=== PATIENT | female | born 1965 | race Caucasian/White ===

== ENCOUNTER 2016-12-05 20:16 | Emergency (ER) | payer MEDICARE, OTHER ==
[2016-12-05 20:48] VITALS: BP 114/90; PULSE 68; RESP 18; TEMP 98.6
--- NOTE | 2016-12-05 22:14 | XR ---
EXAMINATION TYPE: XR tibia fibula LT DATE OF EXAM: 12/05/2016 10:05 PM COMPARISON: NONE HISTORY: Pain after injury TECHNIQUE: 2 views FINDINGS: I see no fracture nor dislocation. Joint spaces are normal. Knee joint and ankle joint appe ar intact. IMPRESSION: Negative left tibia and fibula exam.
--- NOTE | 2016-12-05 22:30 | ED ---
Lower Extremity Injury HPI - General Chief Complaint: Extremity Injury, Lower Stated Complaint: Leg Pain Time Seen by Provider: 12/05/16 21:54 Source: patient, RN notes reviewed Mode of arrival: wheelchair Limitations: no limitations - History of Present Illness Initial Comments: Patient is a 51-year-old female presenting to the with chief complaint of left flores pain after running into a box. Patient reports that she's this happened at 3 PM. Patient reports that she was able to ambulate. Patient reports that she has some bruising and swelling over her anterior flores. She states that the pain shoots up her leg and to her diet. Patient reports her pain is currently a 10 out of 10. She denies taking any any Motrin or Tylenol prior to arriving to the . She denies any ankle or foot pain.Patient denies any recent fever, chills, shortness of breath, chest pain, back pain, abdominal pain, nausea vomiting, numbness or tingling, dysuria or hematuria, constipation or diarrhea, headaches or visual changes, or any other current symptoms - Related Data Previous Rx's Medication Instructions Recorded Cyclobenzaprine [Flexeril] 10 mg PO TID #8 tab 12/05/16 Naproxen 500 mg PO Q12HR #20 tab 12/05/16 Allergies Allergy/AdvReac Type Severity Reaction Status Date / Time No Known Allergies Allergy Verified 12/05/16 20:48 Review of Systems ROS Statement: Those systems with pertinent positive or pertinent negative responses have been documented in the HPI. ROS Other: All systems not noted in ROS Statement are negative. Past Medical History Past Medical History: Asthma History of Any Multi-Drug Resistant Organisms: None Reported Past Surgical History: No Surgical Hx Reported Past Psychological History: No Psychological Hx Reported Smoking Status: Current every day smoker Past Alcohol Use History: None Reported Past Drug Use History: None Reported General Exam - General Exam Comments Initial Comments: Patient is a well-appearing 51-year-old female. She does not appear to be in any acute distress. Limitations: no limitations General appearance: alert, in no apparent distress Head exam: Present: atraumatic, normocephalic, normal inspection Eye exam: Present: normal appearance, PERRL, EOMI. Absent: scleral icterus, conjunctival injection, periorbital swelling ENT exam: Present: normal exam, mucous membranes moist Neck exam: Present: normal inspection. Absent: tenderness, meningismus, lymphadenopathy Respiratory exam: Present: normal lung sounds bilaterally. Absent: respiratory distress, wheezes, rales, rhonchi, stridor Cardiovascular Exam: Present: regular rate, normal rhythm, normal heart sounds. Absent: systolic murmur, diastolic murmur, rubs, gallop, clicks GI/Abdominal exam: Present: soft, normal bowel sounds. Absent: distended, tenderness, guarding, rebound, rigid Extremities exam: Present: normal inspection, full ROM, normal capillary refill. Absent: tenderness, pedal edema, joint swelling, calf tenderness Left Hip exam: Present: normal inspection, full ROM Upper Leg exam: Present: normal inspection, full ROM Knee exam: Present: normal inspection, full ROM Lower Leg exam: Present: full ROM. Absent: normal inspection (Evidence of ecchymosis of the anterior flores.) Ankle exam: Present: normal inspection, full ROM Foot/Toe exam: Present: normal inspection, full ROM Neurovascular tendon exam: Present: no vascular compromise Gait: observed and normal Back exam: Present: normal inspection Neurological exam: Present: alert, oriented X3, CN II-XII intact Psychiatric exam: Present: normal affect, normal mood Course Vital Signs 12/05/16 20:45 Temperature 98.6 F Pulse Rate 68 Respiratory 18 Rate Blood Pressure 114/90 O2 Sat by Pulse 99 Oximetry Medical Decision Making - Medical Decision Making Patient is a 51-year-old female with chief complaint of left flores pain after running into a box. She reports that she's noticed some swelling and bruising over her flores. She denies any decreased range of motion. She denies any peripheral paresthesias. The pain radiates up towards her thigh. X-ray of tib-fib was reviewed and is negative for any acute fracture. Patient will be discharged with naproxen and Flexeril. Patient also be given Peña wrap with ice to apply over her flores. Patient understands treatment plan will comply. I advised patient to follow-up with her primary care physician symptoms continue to persist. Return parameters were discussed. - Radiology Data Radiology results: report reviewed X-ray of left tib-fib reveals no evidence of any acute fracture or dislocation. Disposition Clinical Impression: Contusion of left lower limb Disposition: HOME SELF-CARE Condition: Good Instructions: Knee Pain (ED) Prescriptions: Cyclobenzaprine [Flexeril] 10 mg PO TID #8 tab Naproxen 500 mg PO Q12HR #20 tab Referrals: Alecia Nunes MD [Primary Care Provider] - 1-2 days Time of Disposition: 22:21
[2016-12-05] MEDS ORDERED: CYCLOBENZAPRINE 10 MG TAB PO STA (22:33)
== END 2016-12-05 23:00 | disposition home or self-care (01) ==
LOC: EC 20:16
DX: S80.12XA Contusion of left lower leg, initial encounter (principal); W22.8XXA Striking against or struck by other objects, initial encounter; F17.200 Nicotine dependence, unspecified, uncomplicated
CPT/HCPCS: 99284